=== PATIENT | male | born 1965 | race Caucasian/White ===

== ENCOUNTER 2017-07-25 05:44 | Emergency (ER) | payer OTHER ==
[~2017-07-25] VITALS: Ht 175.3 cm; Wt 68.8 kg
[~2017-07-25 05:44] MED LIST: ALPR0.25 PO; AMLO10TA4 PO; ASPI-624 PO; ATOR20TA PO; CEPH-368 PO; METO25TA91 PO; OMEP-110 PO; SUCR1TAB33 PO; TICA90TA PO
[2017-07-25 06:12] VITALS: BP 144/87
[2017-07-25] MEDS ORDERED: KETOROLAC 30 MG/1 ML ONE (06:15)
[2017-07-25 06:27] LABS: BASOPHILS # (AUTO) 0.06 x10^3/uL (0-0.1); BASOPHILS % (AUTO) 1 % (0-1); EOSINOPHILS # (AUTO) 0.71 x10^3/uL (0-0.4); EOSINOPHILS % (AUTO) 7 % (1-7); LYMPHOCYTES # (AUTO) 2.49 x10^3/uL (1-3.4); LYMPHOCYTES % (AUTO) 26 % (22-44); MD NO; MEAN CORPUSCULAR HEMOGLOBIN 30.8 pg (27.5-34.5); MEAN CORPUSCULAR HGB CONC 33.3 g/dL (33.2-36.2); MEAN CORPUSCULAR VOLUME 92.5 fL (81-97); MEAN PLATELET VOLUME 7.3 fL (7.4-10.4); MONOCYTES # (AUTO) 0.61 x10^3/uL (0.2-0.8); MONOCYTES % (AUTO) 6 % (2-9); NEUTROPHILS # (AUTO) 5.73 x10^3/uL (1.8-6.8); NEUTROPHILS % (AUTO) 60 % (42-75); PLATELET COUNT 408 x10^3/uL (130-400); RED BLOOD COUNT 5.64 x10^6/uL (4.38-5.82); RED CELL DISTRIBUTION WIDTH 13.9 % (9.4-14.8)
[2017-07-25] MEDS ORDERED: KETOROLAC 30 MG/1 ML IVPush ONE (06:30)
[2017-07-25] MEDS ORDERED: SODIUM CHLORIDE 0.9% 1,000ML IVBOLUS ONE (06:30)
[2017-07-25 06:34] LABS: ANION GAP 6 mmol/L (5-15); CALCIUM 8.7 mg/dL (8.5-10.1); CHLORIDE 107 mmol/L (98-107); CREATININE 1.23 mg/dL (0.7-1.3)
[2017-07-25] MEDS ORDERED: MORPHINE SULFATE 4 MG/ML, 1ML ONE (06:42)
[2017-07-25] MEDS ORDERED: MORPHINE SULFATE 4 MG/ML, 1ML IVPush ONE (07:00)
[2017-07-25 08:16] LABS: MICROSCOPIC AUTO
[2017-07-25 08:17] LABS: CULTURE INDICATED? NO
== END 2017-07-25 08:45 | disposition home or self-care (01) ==
LOC: ED 07:21
DX: N20.2 Calculus of kidney with calculus of ureter (principal); I10 Essential (primary) hypertension; F17.210 Nicotine dependence, cigarettes, uncomplicated; Z87.442 Personal history of urinary calculi
CPT/HCPCS: 36415; 74176; 80048; 81001; 85025; 96374; 96375; 99285; J1885; J7030

== ENCOUNTER 2018-04-24 07:34 | Emergency (ER) | payer SELFPAY ==
[~2018-04-24] VITALS: Ht 175.3 cm; Wt 69.0 kg
[2018-04-24] MEDS ORDERED: FAMOTIDINE 20 MG TABLET PO ONE (08:00)
[2018-04-24] MEDS ORDERED: DIPHENHYDRAMINE 25 MG CAPSULE PO ONE (08:00)
[2018-04-24] MEDS ORDERED: DIPHENHYDRAMINE 50 MG CAPSULE ONE (08:00)
[2018-04-24] MEDS ORDERED: FAMOTIDINE 20 MG TABLET ONE (08:00)
[2018-04-24 08:05] VITALS: BP 144/90
[2018-04-24] MEDS ORDERED: METO-95 PO (08:07)
[2018-04-24] MEDS ORDERED: ATOR40TA PO (08:08)
== END 2018-04-24 09:20 | disposition home or self-care (01) ==
LOC: ED 09:00
DX: L50.1 Idiopathic urticaria (principal); B35.0 Tinea barbae and tinea capitis; Z76.0 Encounter for issue of repeat prescription
CPT/HCPCS: 99284; J7512; Q0163